=== PATIENT | female | born 1960 | race American Indian/Alaskan Native ===

== ENCOUNTER 2017-01-26 13:08 | Emergency (ER) | payer OTHER ==
[2017-01-26] MEDS ORDERED: Sodium Chloride 0.9% 10 ML Syringe FLUSH PRN (13:43)
[2017-01-26] MEDS ORDERED: Metoprolol Tartrate 50 MG Tab PO ONE (13:53)
--- NOTE | 2017-01-26 13:53 | EDM.PDOC ---
ED HPI GENERAL MEDICAL PROBLEM - General Chief Complaint: Cardiovascular Problem Stated Complaint: MEDICAL VIA LAW Time Seen by Provider: 01/26/17 13:40 Source of Information: Reports: Patient, Provider History Limitations: Reports: Other (incomplete records) - History of Present Illness INITIAL COMMENTS - FREE TEXT/NARRATIVE: 56 yo female was sent over from the local intermediate via police for over a months worth of intermittent tachycardia or bradycardia. Had a cardiology consultation in [place] and was started on ASA and had both a Holter and a stress ECHO. The intermediate has not gotten any results and has not had several phone calls returned regarding the patients condition today or these test results. Mirella is a former smoker. Denies a hx of heavy ETOH use. Has a strong FHx of CAD with both parents dying of heart dz, father in his 80's and mother in her late 40's or early 50's. Nidia had a near syncopal episode today associated with tachycardia so was sent over for eval. She has no prior hx of recent infection, bleeding, heart dz, or thyroid dz. Onset Date: 11/30/16 Duration: Week(s):, Intermittent Location: Reports: Chest Severity: Moderate (no pain) Improves with: Reports: Rest Worsens with: Reports: Movement Context: Reports: Other (unknown). Denies: Trauma Associated Symptoms: Reports: Shortness of Breath (mild at times), Syncope ( near syncope today). Denies: Chest Pain, Fever/Chills, Headaches, Nausea/ Vomiting, Seizure Treatments MOVER: Reports: Aspirin - Related Data Allergies Allergy/AdvReac Type Severity Reaction Status Date / Time No Known Allergies Allergy Verified 01/26/17 13:52 ED ROS GENERAL - Review of Systems Review Of Systems: See Below Constitutional: Reports: No Symptoms HEENT: Reports: No Symptoms Respiratory: Reports: No Symptoms Cardiovascular: Reports: Dyspnea on Exertion (at times), Lightheadedness (with standing at times), Palpitations. Denies: Edema Endocrine: Reports: No Symptoms GI/Abdominal: Reports: No Symptoms : Reports: No Symptoms Musculoskeletal: Reports: No Symptoms Skin: Reports: No Symptoms ED EXAM, GENERAL - Physical Exam Exam: See Below Exam Limited By: No Limitations General Appearance: Alert, WD/WN, No Apparent Distress Eye Exam: Bilateral Eye: Normal Inspection Ears: Normal External Exam, Normal Canal, Hearing Grossly Normal, Normal TMs Ear Exam: Bilateral Ear: Auricle Normal, Canal Normal, TM normal Nose: Normal Inspection, Normal Mucosa, No Blood Throat/Mouth: Normal Inspection, Normal Lips, Normal Teeth, Normal Oropharynx, Normal Voice, No Airway Compromise Head: Atraumatic, Normocephalic Neck: Normal Inspection, Supple, Non-Tender Respiratory/Chest: No Respiratory Distress, Lungs Clear, Normal Breath Sounds, No Accessory Muscle Use Cardiovascular: Tachycardia, Irregularly Irregular GI/Abdominal: Normal Bowel Sounds, Soft, Non-Tender, No Distention Back Exam: Normal Inspection. No: CVA Tenderness (R), CVA Tenderness (L) Extremities: Normal Inspection, Normal Range of Motion, Non-Tender, No Pedal Edema Neurological: Alert, Oriented, CN II-XII Intact, Normal Cognition, No Motor/ Sensory Deficits Psychiatric: Normal Affect, Normal Mood Skin Exam: Warm, Dry, Intact, Normal Color, No Rash Lymphatic: No Adenopathy EKG INTERPRETATION EKG Date: 01/26/17 Time: 13:35 Rhythm: A-Fib Rate (Beats/Min): 118 [place]: Normal P-Wave: Present QRS: Normal ST-T: Normal QT: Normal Comparison: NA - No Prior EKG Course - Vital Signs Text/Narrative:: discussed with [place] cardi[facility], accepted in transfer by Dr. Yadav, hospitalist service at [place]. EMS transfer with an external pacer in place, police to arrange a medical furlough. Last Recorded V/S: Last Vital Signs Temp 36.3 C 01/26/17 13:46 Pulse 103 H 01/26/17 13:46 Resp 14 01/26/17 13:46 BP 123/71 01/26/17 13:46 Pulse Ox 98 01/26/17 13:46 - Orders/Labs/Meds Orders: Active Orders 24 hr Category Date Time Status Cardiac Monitoring [RC] .As Directed Care 01/26/17 13:43 Active EKG Documentation Completion [RC] ASDIRECTED Care 01/26/17 13:43 Active Oxygen Therapy Adult [Oxygen Therapy] [RC] ASDIRECTED Care 01/26/17 14:03 Active BASIC METABOLIC PANEL,BMP [CHEM] Stat Lab 01/26/17 13:59 Received DRUG SCREEN, URINE [URCHEM] Stat Lab 01/26/17 13:44 Uncollected TROPONIN I [CHEM] Stat Lab 01/26/17 13:59 Received TSH ULTRASENSITIVE [CHEM] Stat Lab 01/26/17 13:59 Received UA W/MICROSCOPIC [URIN] Stat Lab 01/26/17 13:44 Uncollected Sodium Chloride 0.9% [Saline Flush] Med 01/26/17 13:43 Active 10 ml FLUSH ASDIRECTED PRN Saline Lock Insert [OM.PC] Routine Oth 01/26/17 13:43 Ordered EKG 12 Lead [EK] Routine Ther 01/26/17 13:42 Ordered Medication Orders Sodium Chloride (Saline Flush) 10 ml FLUSH ASDIRECTED PRN PRN Reason: Keep Vein Open Labs: Laboratory Tests 01/26/17 Range/Units 13:59 WBC 9.1 (4.5-11.0) K/uL RBC 4.39 (3.30-5.50) M/uL Hgb 12.8 (12.0-15.0) g/dL Hct 39.1 (36.0-48.0) % MCV 89 (80-98) fL MCH 29 (27-31) pg MCHC 33 (32-36) % Plt Count 290 (150-400) K/uL Meds: Medications Generic Name Dose Route Start Last Admin Trade Name Freq PRN Reason Stop Dose Admin Sodium Chloride 10 ml 01/26/17 13:43 Saline Flush FLUSH ASDIRECTED PRN Keep Vein Open Discontinued Medications Generic Name Dose Route Start Last Admin Trade Name Freq PRN Reason Stop Dose Admin Metoprolol Tartrate 50 mg 01/26/17 13:53 Lopressor PO 01/26/17 13:54 ONETIME ONE Departure - Departure Time of Disposition: 14:45 Disposition: DC/Tfer to Acute Hospital 02 Reason for Transfer *Q: Other Condition: Fair Clinical Impression: Tachy-yvonne syndrome Referrals: PCP,None [Primary Care Provider] - Forms: ED Department Discharge - My Orders Last 24 Hours: My Active Orders 01/26/17 13:42 EKG 12 Lead [EK] Routine 01/26/17 13:43 Cardiac Monitoring [RC] .As Directed EKG Documentation Completion [RC] ASDIRECTED Sodium Chloride 0.9% [Saline Flush] 10 ml FLUSH ASDIRECTED PRN Saline Lock Insert [OM.PC] Routine 01/26/17 13:44 DRUG SCREEN, URINE [URCHEM] Stat UA W/MICROSCOPIC [URIN] Stat 01/26/17 13:59 BASIC METABOLIC PANEL,BMP [CHEM] Stat TROPONIN I [CHEM] Stat TSH ULTRASENSITIVE [CHEM] Stat 01/26/17 14:03 Oxygen Therapy Adult [Oxygen Therapy] [RC] ASDIRECTED - Assessment/Plan Last 24 Hours: My Active Orders 01/26/17 13:42 EKG 12 Lead [EK] Routine 01/26/17 13:43 Cardiac Monitoring [RC] .As Directed EKG Documentation Completion [RC] ASDIRECTED Sodium Chloride 0.9% [Saline Flush] 10 ml FLUSH ASDIRECTED PRN Saline Lock Insert [OM.PC] Routine 01/26/17 13:44 DRUG SCREEN, URINE [URCHEM] Stat UA W/MICROSCOPIC [URIN] Stat 01/26/17 13:59 BASIC METABOLIC PANEL,BMP [CHEM] Stat TROPONIN I [CHEM] Stat TSH ULTRASENSITIVE [CHEM] Stat 01/26/17 14:03 Oxygen Therapy Adult [Oxygen Therapy] [RC] ASDIRECTED
== END 2017-01-26 15:35 ==
LOC: JP.ED 13:08
DX: I49.5 Sick sinus syndrome (principal)
CPT/HCPCS: 36415; 80048; 80305; 81001; 84443; 84484; 85027; 93005; 93010; 99284; 99285-25